=== PATIENT | female | born 1995 | race African-American/Black ===

== ENCOUNTER 2016-06-29 20:20 | Emergency (ER) | payer OTHER ==
--- NOTE | 2016-06-29 20:58 | ER Document Report ---
ED Medical Screen (RME) - General Chief Complaint: Vaginal Bleeding Stated Complaint: n Time seen by provider: 20:57 Mode of Arrival: Ambulatory Information source: Patient Notes: 20-year-old female with midcycle brown bleeding with pelvic discomfort. LMP 1- 10-17. No dysuria or dyspareunia. No fever. TRAVEL OUTSIDE OF THE [place] IN LAST 30 DAYS: No - Related Data Allergies/Adverse Reactions: No Known Allergies Allergy (Verified 06/29/16 20:54) Past Medical History - Social History Chew tobacco use (# tins/day): No Frequency of alcohol use: None Drug Abuse: None Renal/ Medical History: Denies: Hx Peritoneal Dialysis - Immunizations Immunizations up to date: Yes Hx Diphtheria, Pertussis, Tetanus Vaccination: Yes Physical Exam - Vital signs Vitals: Temp Pulse Resp BP Pulse Ox 97.9 F 70 16 118/74 100 06/29/16 20:39 06/29/16 20:39 06/29/16 20:39 06/29/16 20:39 06/29/16 20:39 Course - Vital Signs Vital signs: Temp Pulse Resp BP Pulse Ox 97.9 F 70 16 118/74 100 06/29/16 20:51 06/29/16 20:51 06/29/16 20:51 06/29/16 20:51 06/29/16 20:51
[2016-06-29 22:43] LABS: ABSOLUTE EOSINOPHILS # (AUTO) 0.3 10^3/uL (0.0-0.6); ABSOLUTE LYMPHOCYTES (AUTO) 3.5 10^3/uL (0.5-4.7); ABSOLUTE MONOCYTES (AUTO) 0.9 10^3/uL (0.1-1.4); ABSOLUTE NEUT (AUTO) 8.3 10^3/uL (1.7-8.2); BASOPHILS % (AUTO) 0.3 % (0-2); HEMATOCRIT 38.7 % (36.0-47.0); HEMOGLOBIN 12.2 g/dL (12.0-15.5); HGB HCT DIFFERENCE -2.1; LYMPHOCYTES % (AUTO) 27.1 % (13-45); MEAN CORPUSCULAR HEMOGLOBIN 27.5 pg (27.0-33.4); MEAN CORPUSCULAR HGB CONC 31.6 g/dL (32.0-36.0); MEAN CORPUSCULAR VOLUME 87 fl (80-97); MONOCYTES % (AUTO) 6.9 % (3-13); RED BLOOD COUNT 4.45 10^6/uL (3.72-5.28); RED CELL DISTRIBUTION WIDTH 12.5 % (11.5-14.0); SEGMENTED NEUTROPHILS % (AUTO) 63.7 % (42-78)
[2016-06-30 00:03] LABS: CHLAM PCR NOT DETECTED (NOT DETECT)
--- NOTE | 2016-06-30 00:05 | ER Document Report ---
ED GI/ - General Chief Complaint: Vaginal Bleeding Stated Complaint: VAGINAL BLEEDING Time seen by provider: 00:00 Mode of Arrival: Ambulatory Notes: Patient is a 20-year-old female that comes emergency department for chief complaint of lower abdominal cramping and vaginal bleeding that started yesterday, patient finished her regular cycle about 2 weeks ago, patient states that she had not had a period normally for several months before that. Denies any current pain, but states that she was having sharp pain early in the day. She denies fever, nausea vomiting, vaginal discharge, dysuria. She is sexually active with her boyfriend. She denies any trauma. Patient is not currently on any medications or contraceptive. TRAVEL OUTSIDE OF THE [place] IN LAST 30 DAYS: No - Related Data Allergies/Adverse Reactions: No Known Allergies Allergy (Verified 06/29/16 20:54) Past Medical History - General Information source: Patient Last Menstrual Period: 06/18/16 - Social History Smoking Status: Never Smoker Chew tobacco use (# tins/day): No Frequency of alcohol use: None Drug Abuse: None Lives with: Family Family History: Reviewed & Not Pertinent Patient has suicidal ideation: No Patient has homicidal ideation: No - Medical History Medical History: Negative Renal/ Medical History: Denies: Hx Peritoneal Dialysis Surgical Hx: Negative - Immunizations Immunizations up to date: Yes Hx Diphtheria, Pertussis, Tetanus Vaccination: Yes Review of Systems - Review of Systems Constitutional: No symptoms reported EENT: No symptoms reported Cardiovascular: No symptoms reported Respiratory: No symptoms reported Gastrointestinal: See HPI Genitourinary: See HPI Female Genitourinary: See HPI Musculoskeletal: No symptoms reported Skin: No symptoms reported Hematologic/Lymphatic: No symptoms reported Neurological/Psychological: No symptoms reported Physical Exam - Vital signs Vitals: Temp Pulse Resp BP Pulse Ox 97.9 F 70 16 118/74 100 06/29/16 20:39 06/29/16 20:39 06/29/16 20:39 06/29/16 20:39 06/29/16 20:39 Interpretation: Normal - General General appearance: Appears well, Alert In distress: None - Patient smiling, ambulating around the room - HEENT Head: Normocephalic, Atraumatic Eyes: Normal Conjunctiva: Normal Extraocular movements intact: Yes Eyelashes: Normal Pupils: PERRL Nasal: Normal Mouth/Lips: Normal Mucous membranes: Normal Pharynx: Normal Neck: Normal - Respiratory Respiratory status: No respiratory distress Chest status: Nontender Breath sounds: Normal. No: Decreased air movement, Wheezing Chest palpation: Normal - Cardiovascular Rhythm: Regular. No: Tachycardia Heart sounds: Normal auscultation, S1 appreciated, S2 appreciated Murmur: No - Abdominal Inspection: Normal Distension: No distension Bowel sounds: Normal Tenderness: Nontender - Completely nontender and soft abdomen and lower abdominal area. No: Tender Organomegaly: No organomegaly - Genitourinary External exam: Normal Speculum exam: Normal, Cervix closed. No: Cervix open, Vaginal discharge Vaginal bleeding: Mild - Minimal bleeding noted with a few clots Bimanuel exam: No: Cervical motion tender - Back Back: Normal, Nontender - Extremities General upper extremity: Normal inspection, Nontender, Normal color, Normal ROM , Normal temperature General lower extremity: Normal inspection, Nontender, Normal color, Normal ROM , Normal temperature, Normal weight bearing. No: Radha's sign - Neurological Neuro grossly intact: Yes Cognition: Normal Orientation: AAOx4 [place] Coma Scale Eye Opening: Spontaneous Angella Coma Scale Verbal: Oriented [place] Coma Scale Motor: Obeys Commands Angella Coma Scale Total: 15 Speech: Normal Motor strength normal: LUE, RUE, LLE, RLE Sensory: Normal - Psychological Associated symptoms: Normal affect, Normal mood - Skin Skin Temperature: Warm Skin Moisture: Dry Skin Color: Normal Course - Re-evaluation Re-evalutation: HCG is negative. CBC unremarkable, very mild leukocytosis with no significant anemia, patient has a completely nontender abdomen and unremarkable pelvic exam. Patient gave an initial urine, unable to urinate again, asking to leave. Patient will be given Toradol for pain, patient instructed to follow-up with OB/ ASSESSMENT ANALYST for additional management of menometrorrhagia. Patient states satisfaction agreement. - Vital Signs Vital signs: Temp Pulse Resp BP Pulse Ox 97.9 F 71 16 107/86 H 98 06/30/16 02:38 06/30/16 02:38 06/30/16 02:38 06/30/16 02:38 06/30/16 02:38 - Laboratory Result Diagrams: 06/29/16 22:10 Laboratory results interpreted by me: 06/29/16 22:10 WBC 13.0 H MCHC 31.6 L Absolute Neutrophils 8.3 H Discharge - Discharge Clinical Impression: Menometrorrhagia Condition: Stable Disposition: HOME, SELF-CARE Additional Instructions: No concerning abnormalities are noted on your evaluation or workup. Most likely this will resolve, take the Toradol if needed for pain, if symptoms persist please follow-up with referral to [facility]. Return to emergency department for any concerning or worsening symptoms including dizziness, fever, severe pain, etc. Prescriptions: Ketorolac Tromethamine [Toradol 10 mg Tablet] 10 mg PO Q8HP PRN #20 tablet PRN Reason: Referrals: [facility] [Provider Group] - Follow up as needed
[2016-06-30 02:42] VITALS: BP 107/86
== END 2016-06-30 02:43 | disposition home or self-care (01) ==
LOC: ER 20:20
DX: N92.1 Excessive and frequent menstruation with irregular cycle (principal); N93.9 Abnormal uterine and vaginal bleeding, unspecified; R10.30 Lower abdominal pain, unspecified
CPT/HCPCS: 36415; 84703; 85025; 87210; 87491; 87591; 99284

== ENCOUNTER 2016-07-06 00:52 | Emergency (ER) | payer OTHER ==
[2016-07-06 03:23] LABS: APPEARANCE,URINE CLOUDY; BILIRUBIN,URINE NEGATIVE (NEGATIVE); GLUCOSE, URINE NEGATIVE (NEGATIVE); KETONES,URINE TRACE mg/dL (NEGATIVE); LEUKOCYTE ESTERASE,URINE SMALL (NEGATIVE); NITRITE,URINE NEGATIVE (NEGATIVE); PROTEIN,URINE NEGATIVE (NEGATIVE); URINE SPECIFIC GRAVITY 1.028
[2016-07-06 03:32] LABS: ABSOLUTE BASOPHILS # (AUTO) 0.1 10^3/uL (0.0-0.2); ABSOLUTE EOSINOPHILS # (AUTO) 0.3 10^3/uL (0.0-0.6); ABSOLUTE LYMPHOCYTES (AUTO) 5.5 10^3/uL (0.5-4.7); ABSOLUTE MONOCYTES (AUTO) 0.8 10^3/uL (0.1-1.4); ABSOLUTE NEUT (AUTO) 4.8 10^3/uL (1.7-8.2); BASOPHILS % (AUTO) 0.5 % (0-2); EOSINOPHILS % (AUTO) 2.6 % (0-6); HEMATOCRIT 39.7 % (36.0-47.0); HEMOGLOBIN 12.7 g/dL (12.0-15.5); HGB HCT DIFFERENCE -1.6; MEAN CORPUSCULAR HEMOGLOBIN 27.5 pg (27.0-33.4); MEAN CORPUSCULAR VOLUME 86 fl (80-97); MONOCYTES % (AUTO) 6.9 % (3-13); RED BLOOD COUNT 4.61 10^6/uL (3.72-5.28); RED CELL DISTRIBUTION WIDTH 12.6 % (11.5-14.0); WHITE BLOOD COUNT 11.4 10^3/uL (4.0-10.5)
[2016-07-06] MEDS ORDERED: MAG HYDROX/AL HYDROX/SIMETH SUSP 30 ML UDCUP PO ONE (03:35)
[2016-07-06] MEDS ORDERED: LIDOCAINE 2% VISCOUS SOLN 20 ML UDCUP PO ONE (03:35)
[2016-07-06] MEDS ORDERED: METOCLOPRAMIDE HCL ORAL SOLN 10 MG/10 ML UDCUP PO ONE (03:35)
--- NOTE | 2016-07-06 03:38 | ER Document Report ---
ED GI/ - General Chief Complaint: Abdominal Pain Stated Complaint: STOMACH PAINS Time seen by provider: 03:35 Mode of Arrival: Ambulatory Information source: Patient TRAVEL OUTSIDE OF THE [place] IN LAST 30 DAYS: No - HPI Patient complains to provider of: Abdominal pain Onset: Last week Timing/Duration: Persistent Quality of pain: Other - Squeezing Severity at maximum: Moderate Severity in ED: Moderate Location: Epigastric, Suprapubic Vaginal bleeding (Compared to normal period): None Associated symptoms: Nausea Exacerbated by: Denies Relieved by: Denies Similar symptoms previously: Yes Recently seen / treated by doctor: Yes Notes: 07/06/16 03:37 Patient is a 20-year-old female who presents to the emergency room complaining of abdominal pain that's been going on for the past week without relief, states it is squeezing in nature and associated with nausea, there is been no vomiting or diarrhea, no dysuria or hematuria, she does report some urinary frequency, no vaginal discharge or irregular bleeding, patient ate a bag of chips approximate 1 hour prior to my evaluation and prior to that a sausage biscuit, was able to tolerate both of these and it did not change her pain in any way, in fact at the end of my evaluation she asked if she could have something else to eat - Related Data Allergies/Adverse Reactions: No Known Allergies Allergy (Verified 06/29/16 20:54) Past Medical History - General Information source: Patient - Social History Smoking Status: Never Smoker Chew tobacco use (# tins/day): No Frequency of alcohol use: None Drug Abuse: None Family History: Reviewed & Not Pertinent Patient has suicidal ideation: No Patient has homicidal ideation: No Renal/ Medical History: Denies: Hx Peritoneal Dialysis Surgical Hx: Negative - Immunizations Immunizations up to date: Yes Hx Diphtheria, Pertussis, Tetanus Vaccination: Yes Review of Systems - Review of Systems Constitutional: No symptoms reported. denies: Fever EENT: No symptoms reported Cardiovascular: No symptoms reported Respiratory: No symptoms reported Gastrointestinal: Abdominal pain, Nausea. denies: Diarrhea, Vomiting, Poor appetite Genitourinary: Frequency. denies: Burning, Dysuria Female Genitourinary: No symptoms reported. denies: , Vaginal discharge , Vaginal bleeding Musculoskeletal: No symptoms reported Skin: No symptoms reported Hematologic/Lymphatic: No symptoms reported Neurological/Psychological: No symptoms reported -: Yes All other systems reviewed and negative Physical Exam - Vital signs Vitals: Temp Pulse Resp BP Pulse Ox 98 F 87 16 119/84 100 07/06/16 00:57 07/06/16 00:57 07/06/16 00:57 07/06/16 00:57 07/06/16 00:57 Interpretation: Normal - General General appearance: Appears well, Alert - HEENT Head: Normocephalic, Atraumatic Eyes: Normal Pupils: PERRL - Respiratory Respiratory status: No respiratory distress Chest status: Nontender Breath sounds: Normal Chest palpation: Normal - Cardiovascular Rhythm: Regular Heart sounds: Normal auscultation Murmur: No - Abdominal Inspection: Normal Distension: No distension Bowel sounds: Normal Tenderness: Tender - Epigastric and suprapubic tenderness Organomegaly: No organomegaly - Back Back: Normal, Nontender - Extremities General upper extremity: Normal inspection, Nontender, Normal color, Normal ROM , Normal temperature General lower extremity: Normal inspection, Nontender, Normal color, Normal ROM , Normal temperature, Normal weight bearing. No: Radha's sign - Neurological Neuro grossly intact: Yes Cognition: Normal Orientation: AAOx4 Angella Coma Scale Eye Opening: Spontaneous Angella Coma Scale Verbal: Oriented [place] Coma Scale Motor: Obeys Commands [place] Coma Scale Total: 15 Speech: Normal Motor strength normal: LUE, RUE, LLE, RLE Sensory: Normal - Psychological Associated symptoms: Normal affect, Normal mood - Skin Skin Temperature: Warm Skin Moisture: Dry Skin Color: Normal Course - Re-evaluation Re-evalutation: 07/06/16 04:22 Patient resting comfortably, reports relief pain, labs were discussed with her at bedside which are consistent for a urinary tract infection, she will be started on antibiotics for this and provided with information for follow-up, advised to return if symptoms worsen, patient acknowledges understanding and agreement with this plan - Vital Signs Vital signs: Temp Pulse Resp BP Pulse Ox 98 F 87 16 119/84 100 07/06/16 00:57 07/06/16 00:57 07/06/16 00:57 07/06/16 00:57 07/06/16 00:57 - Laboratory Result Diagrams: 07/06/16 03:18 07/06/16 03:18 Laboratory results interpreted by me: 07/06/16 07/06/16 03:10 03:18 WBC 11.4 H Lymphocytes % 48.0 H Absolute Lymphocytes 5.5 H Urine Ketones TRACE H Urine Blood SMALL H Urine Urobilinogen 4.0 H Ur Leukocyte Esterase SMALL H Discharge - Discharge Clinical Impression: Urinary tract infection Qualifiers: Urinary tract infection type: site unspecified Hematuria presence: without hematuria Qualified Code(s): N39.0 - Urinary tract infection, site not specified Condition: Stable Disposition: HOME, SELF-CARE Instructions: Abdominal Pain ([facility]), Urinary Tract Infection ([facility]), Nitrofurantoin ([facility]) Additional Instructions: Follow up with your primary care provider in one to 2 days. Return to the emergency room immediately if symptoms worsen or any additional concerns. Prescriptions: Famotidine [Pepcid 20 mg Tablet] 20 mg PO BID #12 tablet Nitrofurantoin/Nitrofuran Mac [Macrobid 100 mg Capsule] 100 mg PO BID #20 capsule Forms: Return to Work
[2016-07-06 03:43] LABS: ALANINE AMINOTRANSFERASE 22 U/L (9-52); ALBUMIN 4.2 g/dL (3.5-5.0); ALKALINE PHOSPHATASE 68 U/L (38-126); ANION GAP 12 (5-19); ASPARTATE AMINO TRANSFERASE 17 U/L (14-36); BILIRUBIN,TOTAL 0.4 mg/dL (0.2-1.3); BLOOD UREA NITROGEN 14 mg/dL (7-20); CALCIUM 9.8 mg/dL (8.4-10.2); CARBON DIOXIDE 28 mmol/L (22-30); CHLORIDE 104 mmol/L (98-107); CREATININE RESULT 0.75 mg/dL (0.52-1.25); GLUCOSE 94 mg/dL (75-110); LIPASE 70.1 U/L (23-300); POTASSIUM 3.6 mmol/L (3.6-5.0); SODIUM 143.6 mmol/L (137-145); TOTAL PROTEIN 7.5 g/dL (6.3-8.2)
[2016-07-06] MEDS ORDERED: NITROFURANTOIN MONOHYD/M-CRYST 100 MG CAPSULE PO ONE (04:23)
[2016-07-06 04:55] VITALS: BP 118/87
== END 2016-07-06 04:55 | disposition home or self-care (01) ==
LOC: ER 00:52
DX: N39.0 Urinary tract infection, site not specified (principal); R10.13 Epigastric pain; R10.30 Lower abdominal pain, unspecified; R11.0 Nausea; R35.0 Frequency of micturition
CPT/HCPCS: 99284; 36415; 83690; 84703; 85025; 80053; 81001; J3490; J8499

== ENCOUNTER 2016-09-20 20:09 | Emergency (ER) | payer OTHER, MEDICAID ==
--- NOTE | 2016-09-20 20:48 | ER Document Report ---
ED Medical Screen (RME) - General Chief Complaint: Vag Bleeding, +preg <12wks Stated Complaint: VAGINAL BLEEDING Notes: I briefly seen and evaluated this patient in my role as physician in triage. I have initiated orders based on this initial evaluation. Please see my colleague' s documentation for complete history, physical, management, diagnosis, and ultimate disposition. My brief evaluation: Patient reports that she had a positive test week ago. Last menstrual period was mid July. This is her first . Patient says she started having some vaginal spotting this morning which progressed to significant vaginal bleeding. She has used 5 tampons today. The patient says she is soaking through each time. The patient says she has some pelvic cramping that is now worse in her low back. The patient states she is generally healthy. On exam, patient alert and oriented no acute distress vital signs are stable patient is afebrile nontoxic appearing. Medical decision making: We will initiate workup for threatened miscarriage versus ectopic. TRAVEL OUTSIDE OF THE [place] IN LAST 30 DAYS: No - Related Data Allergies/Adverse Reactions: No Known Allergies Allergy (Verified 09/20/16 20:29) Past Medical History Renal/ Medical History: Denies: Hx Peritoneal Dialysis - Immunizations Immunizations up to date: Yes Hx Diphtheria, Pertussis, Tetanus Vaccination: Yes Physical Exam - Vital signs Vitals: Temp Pulse Resp BP Pulse Ox 98.9 F 82 16 121/80 96 09/20/16 20:14 09/20/16 20:14 09/20/16 20:14 09/20/16 20:14 09/20/16 20:14 Course - Vital Signs Vital signs: Temp Pulse Resp BP Pulse Ox 98.9 F 82 16 121/80 96 09/20/16 20:14 09/20/16 20:14 09/20/16 20:14 09/20/16 20:14 09/20/16 20:14
[2016-09-20 21:09] LABS: ABSOLUTE EOSINOPHILS # (AUTO) 0.3 10^3/uL (0.0-0.6); ABSOLUTE LYMPHOCYTES (AUTO) 4.7 10^3/uL (0.5-4.7); ABSOLUTE MONOCYTES (AUTO) 0.9 10^3/uL (0.1-1.4); ABSOLUTE NEUT (AUTO) 4.8 10^3/uL (1.7-8.2); BASOPHILS % (AUTO) 0.4 % (0-2); EOSINOPHILS % (AUTO) 2.4 % (0-6); HEMOGLOBIN 13.1 g/dL (12.0-15.5); HGB HCT DIFFERENCE -0.7; LYMPHOCYTES % (AUTO) 44.3 % (13-45); MEAN CORPUSCULAR HGB CONC 32.8 g/dL (32.0-36.0); MEAN CORPUSCULAR VOLUME 86 fl (80-97); MONOCYTES % (AUTO) 8.2 % (3-13); RED BLOOD COUNT 4.68 10^6/uL (3.72-5.28); SEGMENTED NEUTROPHILS % (AUTO) 44.7 % (42-78); WHITE BLOOD COUNT 10.6 10^3/uL (4.0-10.5)
[2016-09-20 21:20] LABS: APPEARANCE,URINE SLIGHTLY-CLOUDY; BILIRUBIN,URINE NEGATIVE (NEGATIVE); GLUCOSE, URINE NEGATIVE (NEGATIVE); KETONES,URINE NEGATIVE (NEGATIVE); LEUKOCYTE ESTERASE,URINE NEGATIVE (NEGATIVE); NITRITE,URINE NEGATIVE (NEGATIVE); PROTEIN,URINE NEGATIVE (NEGATIVE); URINE SPECIFIC GRAVITY 1.028; UROBILINOGEN,URINE NEGATIVE mg/dL (<2.0)
--- NOTE | 2016-09-20 21:24 | ER Document Report ---
ED General - General Chief Complaint: Vag Bleeding, +preg <12wks Stated Complaint: VAGINAL BLEEDING Mode of Arrival: Ambulatory Information source: Patient Notes: 20 yr old female G1 LNMP Jul 23 presents with complaints of + preg test last week with vag bleeding starting this morning . Patient does note clots. Denies any severe abdominal pain notes suprapubic cramping TRAVEL OUTSIDE OF THE [place] IN LAST 30 DAYS: No - HPI Onset: This morning Onset/Duration: Sudden Quality of pain: Cramping Severity: Mild Pain Level: 1 Associated symptoms: Other Exacerbated by: Denies Relieved by: Denies Similar symptoms previously: No Recently seen / treated by doctor: No - Related Data Allergies/Adverse Reactions: No Known Allergies Allergy (Verified 09/20/16 20:29) Past Medical History - Social History Smoking Status: Never Smoker Cigarette use (# per day): No Chew tobacco use (# tins/day): No Smoking Education Provided: No Family History: Reviewed & Not Pertinent Patient has suicidal ideation: No Patient has homicidal ideation: No Renal/ Medical History: Denies: Hx Peritoneal Dialysis - Immunizations Immunizations up to date: Yes Hx Diphtheria, Pertussis, Tetanus Vaccination: Yes Review of Systems - Review of Systems Notes: REVIEW OF SYSTEMS: CONSTITUTIONAL : Denies fever, chills, or sweats. Denies recent illness. EENT: Denies eye, ear, throat, or mouth pain or symptoms. Denies nasal or sinus congestion or discharge. Denies throat, tongue, or mouth swelling or difficulty swallowing. CARDIOVASCULAR: Denies chest pain. Denies palpitations or racing or irregular heart beat. Denies ankle edema. RESPIRATORY: Denies cough, cold, or chest congestion. Denies shortness of breath, difficulty breathing, or wheezing. GASTROINTESTINAL: Denies abdominal pain or distention. Denies nausea, vomiting , or diarrhea. Denies blood in vomitus, stools, or per rectum. Denies black, tarry stools. Denies constipation. GENITOURINARY: Denies difficulty urinating, painful urination, burning, frequency, blood in urine, or discharge. FEMALE GENITOURINARY: Admits to vaginal bleeding MUSCULOSKELETAL: Denies back or neck pain or stiffness. Denies joint pain or swelling. SKIN: Denies rash, lesions or sores. HEMATOLOGIC : Denies easy bruising or bleeding. LYMPHATIC: Denies swollen, enlarged glands. NEUROLOGICAL: Denies confusion or altered mental status. Denies passing out or loss of consciousness. Denies dizziness or lightheadedness. Denies headache. Denies weakness or paralysis or loss of use of either side. Denies problems with gait or speech. Denies sensory loss, numbness, or tingling. Denies seizures. PSYCHIATRIC: Denies anxiety or stress. Denies depression, suicidal ideation, or homicidal ideation. ALL OTHER SYSTEMS REVIEWED AND NEGATIVE. Dictation was performed using [employer] voice recognition software PHYSICAL EXAMINATION: GENERAL: Well-appearing, well-nourished and in no acute distress. HEAD: Atraumatic, normocephalic. EYES: Pupils equal round and reactive to light, extraocular movements intact, conjunctiva are normal. ENT: Nares patent, oropharynx clear without exudates. Moist mucous membranes. NECK: Normal range of motion, supple without lymphadenopathy LUNGS: Breath sounds clear to auscultation bilaterally and equal. No wheezes rales or rhonchi. HEART: Regular rate and rhythm without murmurs ABDOMEN: Soft, nontender, nondistended abdomen. No guarding, no rebound. No masses appreciated. Female : deferred Musculoskeletal: Normal range of motion, no pitting or edema. No cyanosis. NEUROLOGICAL: Cranial nerves grossly intact. Normal speech, normal gait. Normal sensory, motor exams PSYCH: Normal mood, normal affect. SKIN: Warm, Dry, normal turgor, no rashes or lesions noted. Physical Exam - Vital signs Vitals: Temp Pulse Resp BP Pulse Ox 98.9 F 82 16 121/80 96 09/20/16 20:14 09/20/16 20:14 09/20/16 20:14 09/20/16 20:14 09/20/16 20:14 Course - Re-evaluation Re-evalutation: 09/20/16 21:24 Ultrasound revealed workup pending 09/20/16 23:09 It appears patient has not actually , she is otherwise stable for discharge I believe patient is just having her menses After performing a Medical Screening Examination, I estimate there is LOW risk for ACUTE APPENDICITIS, BOWEL OBSTRUCTION, ACUTE CHOLECYSTITIS, PERFORATED DIVERTICULITIS, INCARCERATED HERNIA, PANCREATITIS, PELVIC INFLAMMATORY DISEASE, PERFORATED ULCER, ECTOPIC , or TUBO-OVARIAN ABSCESS, thus I consider the discharge disposition reasonable. Also, there is no evidence or peritonitis , sepsis, or toxicity. I have reevaluated this patient multiple times and no significant life threatening changes are noted. The patient and I have discussed the diagnosis and risks, and we agree with discharging home with close follow-up with the understanding that symptoms and presentations can change. We also discussed returning to the Emergency Department immediately if new or worsening symptoms occur. We have discussed the symptoms which are most concerning (e.g., bloody stool, fever, changing or worsening pain, vomiting) that necessitate immediate return. - Vital Signs Vital signs: Temp Pulse Resp BP Pulse Ox 98.9 F 82 16 121/80 96 09/20/16 20:14 09/20/16 20:14 09/20/16 20:14 09/20/16 20:14 09/20/16 20:14 - Laboratory Result Diagrams: 09/20/16 20:55 Laboratory results interpreted by me: 09/20/16 09/20/16 20:55 20:55 WBC 10.6 H Urine Ascorbic Acid 40 H - Diagnostic Test Radiology reviewed: Image reviewed, Reports reviewed Discharge - Discharge Clinical Impression: Vaginal bleeding Condition: Stable Disposition: HOME, SELF-CARE Instructions: Vaginal Bleeding ([facility]) Additional Instructions: Follow up with your physician tomorrow for further care or return to the ED IMMEDIATELY if symptoms worsen or new concerns occur. If you cannot afford to follow up with your primary care physician a list of low cost clinics have been provided at the end of your discharge papers as well.
[2016-09-20 23:33] VITALS: BP 103/77
== END 2016-09-20 23:31 | disposition home or self-care (01) ==
LOC: ER 20:09
DX: N93.8 Other specified abnormal uterine and vaginal bleeding (principal)
CPT/HCPCS: 36415; 76817; 81001; 84702; 85025; 86900; 86901; 99284